=== PATIENT | female | born 1935 | race Caucasian/White ===

== ENCOUNTER 2016-12-26 12:13 | Emergency (ER) | payer OTHER ==
--- NOTE | 2016-12-26 13:11 | EDPHY ---
H & P Stated Complaint: tripped and fell injuring l shoulder/denies loc/neck pain Time Seen by Provider: 12/26/16 12:22 HPI/ROS: CHIEF COMPLAINT: trip and fall, left shoulder pain HISTORY OF PRESENT ILLNESS: 81-year-old female presents to the emergency department after a mechanical trip and fall while walking down the sidewalk with her today. Her reports there was an inch and half lip in the sidewalk that she tripped over. Patient reports she fell forward onto her left shoulder. Patient denies head strike, no neck pain. Patient is right-hand- dominant, she denies numbness or tingling in her hand. Tetanus is up-to-date, she does report burning to her left elbow from an abrasion though denies other elbow pain, no wrist pain. Patient denies chest, abdomen or pelvis pain REVIEW OF SYSTEMS: A comprehensive 10 point review of systems is otherwise negative aside from elements mentioned in the history of present illness. Source: Patient Exam Limitations: No limitations - Personal History Current Tetanus/Diphtheria Vaccine: Yes - Medical/Surgical History Hx Asthma: No Hx Chronic Respiratory Disease: No Hx Diabetes: No Hx Cardiac Disease: No Hx Renal Disease: No Hx Cirrhosis: No Hx Alcoholism: No Hx HIV/AIDS: No Hx Splenectomy or Spleen Trauma: No Other PMH: Graves disease, breast ca, polycytehmia vera, stenosis, multiple eye sugeries bilat hip nd knee replacements/ l femur fx htn - Social History Smoking Status: Never smoked - Physical Exam Exam: Physical Exam Gen: Alert and Oriented, NAD HEENT: PERRL, moist mucous membranes NECK: No C-spine tenderness to palpation CV: regular rate and regular rhythm PULM: CTAB, no wheezes ABDOMEN: soft, non tender to palpation, BS present BACK: No midline tenderness NEURO: Neurologically grossly intact EXTREMITIES: Left shoulder with swelling and obvious deformity, tenderness to palpation, range of motion not tested due to pain, left elbow with no swelling, no tenderness to medial or lateral epicondyle or olecranon. Superficial abrasion over left elbow, 2+ radial pulses, sensation intact to light touch, normal radial motor and sensation, normal sensation to deltoid. SKIN: Superficial abrasion to left elbow PSYCH: answers questions appropriately. Constitutional: Initial Vital Signs Temperature (C) 36.8 C 12/26/16 12:27 Heart Rate 63 12/26/16 12:27 Respiratory Rate 18 12/26/16 12:27 Blood Pressure 185/82 H 12/26/16 12:27 O2 Sat (%) 96 12/26/16 12:27 O2 Delivery Mode Room Air Allergies/Adverse Reactions: Penicillins Allergy (Severe, Verified 12/26/16 12:26) Hives Home Medications: Medication Instructions Recorded Atenolol [Tenormin 25 mg (RX)] 0 mg PO DAILY 11/23/12 Aspirin [Aspirin 81mg (*)] 81 mg PO DAILY 06/20/16 Cholecalciferol Vit D3 [Vitamin D3 2,000 units PO DAILY 06/20/16 2000 units tab (OTC)] Esomeprazole Magnesium [Nexium] 20 mg PO DAILY 06/20/16 Herbals/Supplements -Info Only 1 ea PO DAILY 06/20/16 Hydroxyurea [Hydrea 500 mg (*)] 500 mg PO DAILY 06/20/16 Latanoprost 0.005% [Xalatan 0.005% 1 drops LEFTEYE HS 06/20/16 (*)] Levothyroxine [Synthroid 137 mcg 137 mcg PO MOTUWETHFRSA@06 06/20/16 (*)] Multivitamins [Multivitamin (*)] 1 each PO DAILY 06/20/16 [place]-3 Fatty Acids [Fish Oil 1000 2,000 mg PO BID 06/20/16 mg (*)] Vitamin B Complex [B Complex] 1 tab PO DAILY 06/20/16 ACETAMINOPHEN 650 mg PO Q4-6PRN PRN MDD 3000 mg 06/23/16 Hydrocodone/APAP 5/325 [[place] 1 tab PO Q4H PRN #14 tab 12/26/16 5/325] Medical Decision Making - Diagnostics Imaging Results: Imaging Impressions Shoulder X-Ray 12/26/16 12:43 Impression: Comminuted mildly displaced proximal humerus fracture. Imaging: Discussed imaging studies w/ bingo caller Radiologist, I viewed and interpreted images myself ED Course/Re-evaluation: 81-year-old female left humerus fracture and possible dislocation after a trip and fall. I have contacted with Dr. Atkins who evaluated the patient's x-ray and requested a CT scan. IV established, patient is given 0.5 mg of Dilaudid for pain control. 3pm-patient is back from CT scan, Dr. Atkins has seen and evaluated the patient. Patient does not have a shoulder dislocation. He is requesting a sling and discharged home with pain medication. He will follow up with her in office next week. Patient is given strict return precautions for any neurovascular compromise. - Data Points Medications Given: Discontinued Medications Hydromorphone HCl (Dilaudid) 0.5 mg IVP EDNOW ONE Stop: 12/26/16 13:34 Last Admin: 12/26/16 13:50 Dose: 0.5 mg Departure - Departure Disposition: Home, Routine, Self-Care Clinical Impression: Left humeral fracture Qualifiers: Encounter type: initial encounter Humerus Location: proximal Fracture type: closed Fracture morphology: other fracture Fracture alignment: nondisplaced Qualified Code(s): S42.295A - Other nondisplaced fracture of upper end of left humerus, initial encounter for closed fracture Condition: Good Instructions: Proximal Humerus Fracture (ED) Additional Instructions: Keep your arm in the sling. Ice to your shoulder, take 600 mg of ibuprofen every 8 hours with food for 3-5 days for pain, take 1/2 to 1 hydrocodone every 4 -6 hours as needed for severe pain. This medication has Tylenol in it. Do not take more than 3000 mg of Tylenol in 24 hours. Return to the emergency department immediately for any numbness or tingling in your arm, pain that is not controlled, any new symptoms or concerns. Follow-up with Dr. Atkins in his office next week. Call Tuesday to schedule this appointment. Referrals: Mau Atkins MD [Medical Doctor] - As per Instructions Prescriptions: Hydrocodone/APAP 5/325 [[place] 5/325] 1 tab PO Q4H PRN #14 tab PRN Reason: Pain, Moderate
[2016-12-26] MEDS ORDERED: HYDROmorphONE/DILAUDID 1 MG/ML SYR IVP ONE (13:33)
[2016-12-26] MEDS ORDERED: ONDANSETRON 4 MG/2 ML VIAL ONE (13:36)
[2016-12-26] MEDS ORDERED: HYDROCODONE/APAP 5/325 TAB PO ONE (15:33)
[2016-12-26] MEDS ORDERED: IBUPROFEN 600 MG TAB PO ONE (15:49)
--- NOTE | 2016-12-26 16:02 | GCON ---
[f rep st] CONSULTATION ER CONSULT NOTE DATE OF CONSULTATION: 12/26/2016 CHIEF COMPLAINT: Left proximal humerus fracture. HISTORY OF PRESENT ILLNESS: A 81-year-old female presents after falling down and tripping on a side walk and landing on her left shoulder. She denies other injury or any other pain. She had immediat e pain in the left shoulder and difficulty moving it. She was able to walk. She also states she jane s an abrasion on her elbow. REVIEW OF SYSTEMS: Comprehensive 10-point review of systems performed is otherwise negative. PAST MEDICAL HISTORY: Graves disease, breast cancer, stenosis. PAST SURGICAL HISTORY: Eye surgeries, bilateral hip and knee replacements, femur fracture. SOCIAL HISTORY: She is a nonsmoker. FAMILY HISTORY: Noncontributory. ALLERGIES: Penicillins. MEDICATIONS: Please see med list in [facility]. PHYSICAL EXAM: GENERAL: She is alert, oriented, appropriate, in no acute distress. HEENT: Her he ad is atraumatic and normocephalic. Eyes are equal and reactive. NECK: Supple. CVS: Regular rat e and rhythm. PULMONARY: She has good inspiratory effort and symmetric chest rise. ABDOMEN: Soft . BACK: No midline tenderness. EXTREMITIES: Left shoulder she hold at her side and internally ro tated. She has some swelling of the left shoulder and is tender. She has intact sensation of the a xillary nerve. She can flex and extend her elbow with good strength. She can move her hand with 4/ 5 strength in finger abduction, flexion, extension, and thumb flexion, abduction. Neurovascularly i ntact in her other nerves. Right upper extremity is without abnormality, showing good range of ella on, full strength. Her lower extremities show good range of motion, full strength. No other concer kathleen signs. RADIOLOGY: Plain films showed a proximal humerus fracture. CT showing that the humeral head is loc ated within the glenoid. She has a surgical neck fracture as well as a greater tuberosity fracture. However, these are both only minimally to mildly displaced. Greater tuberosity does appear to be within 5 mm. The shaft and head show good alignment. ASSESSMENT: Three-part proximal humerus fracture. PLAN: I discussed the nature of her condition and treatment options. I told her that we could atte mpt to treat this nonoperatively. She is in a good position at the moment. We will get her a sling , and she will be nonweightbearing with this, and we will have her keep the shoulder at her side. O btain x-rays in a few days. I gave her my card to schedule a clinic appointment for . We w ill further evaluate the tuberosity. If her tuberosity begins displacing, we would schedule surgery to repair the tuberosity. If this remains stable, I think she can be treated nonoperatively in a [facility]. She will be sent home from the emergency room. /[id number]/MODL
[2016-12-26 16:12] VITALS: BP 144/76; PULSE 76; RESP 16; TEMP 97.7; O2SAT 98
== END 2016-12-26 16:12 | disposition home or self-care (01) ==
DX: S42.295A Other nondisplaced fracture of upper end of left humerus, initial encounter for closed fracture (principal); Z79.82 Long term (current) use of aspirin; Z85.3 Personal history of malignant neoplasm of breast; W10.1XXA Fall (on)(from) sidewalk curb, initial encounter; Y92.480 Sidewalk as the place of occurrence of the external cause; Y99.8 Other external cause status; Y93.01 Activity, walking, marching and hiking
CPT/HCPCS: 73030; 73200; 96374; 99285; A4565; J1170; J2405

== ENCOUNTER → 2017-02-22 | Outpatient (CLI) | payer OTHER | LOC: BMCIMAGING 13:31 | PROVIDERS: ATTEND Internal Medicine Hematology & Oncology | DX: Z12.31 Encounter for screening mammogram for malignant neoplasm of breast (principal); Z85.3 Personal history of malignant neoplasm of breast; Z90.12 Acquired absence of left breast and nipple | CPT/HCPCS: G0202-52 ==

== ENCOUNTER → 2017-04-20 | Outpatient (CLI) | payer OTHER | LOC: BMCIMAGING 09:41 | PROVIDERS: ATTEND Physician Assistant | DX: Z13.820 Encounter for screening for osteoporosis (principal); M81.0 Age-related osteoporosis without current pathological fracture ==

== ENCOUNTER 2017-08-20 09:15 | Emergency (ER) | payer OTHER ==
[2017-08-20 09:20] VITALS: PULSE 78; TEMP 98.2
[2017-08-20] MEDS ORDERED: IBUPROFEN 600 MG TAB PO ONE (10:39)
--- NOTE | 2017-08-20 10:45 | EDPHY ---
H & P Stated Complaint: Tripped on walker;fell,inj L wrist;also wants check for poss UTI Time Seen by Provider: 08/20/17 09:25 HPI/ROS: Chief complaint: Left wrist injury History of present illness: This is an 82-year-old female who presents to the emergency department for left wrist injury. Patient was going to the bathroom with her walker when she lost her balance and fell onto her left wrist. Since then she has had pain in the wrist. Uncomfortable to move it. No report of open wounds. No report of paresthesias or abnormal coolness in the hand or arm. No other injuries reported. No preceding events such as dizziness or lightheadedness. There was no loss of consciousness. Patient does report she has been going to the bathroom more often than usual, she describes urinary urgency. However this is been ongoing problem is being followed by her primary care doctor for this. No report of fevers or new symptoms. Review of systems: A 10 point review of systems was obtained and other than described above was negative - Personal History Current Tetanus Diphtheria and Acellular Pertussis (TDAP): Yes - Medical/Surgical History Hx Asthma: No Hx Chronic Respiratory Disease: No Hx Diabetes: No Hx Cardiac Disease: No Hx Renal Disease: No Hx Cirrhosis: No Hx Alcoholism: No Hx HIV/AIDS: No Hx Splenectomy or Spleen Trauma: No Other PMH: Graves disease, breast ca, polycytehmia vera, stenosis, multiple eye sugeries bilat hip nd knee replacements/ l femur fx htn. R leg femur fx - Social History Smoking Status: Never smoked - Physical Exam Exam: General: Alert, nontoxic Respiratory: Lungs clear to auscultation bilaterally Cardiac: Regular rate and rhythm Abdomen: Soft, nondistended, nontender Genitourinary: No CVA tenderness Musculoskeletal: Tenderness to the left wrist. However she is still moving it. The rest the arm and left hand are nontender. She is moving the digits of the left hand well. Vascular: Radial pulses 2+. Capillary refill brisk in the left hand. Neurologic: Sensation intact throughout the left upper extremity. Constitutional: Initial Vital Signs Temperature (C) 36.8 C 08/20/17 09:17 Heart Rate 78 08/20/17 09:17 Respiratory Rate 18 08/20/17 09:17 Blood Pressure 152/85 H 08/20/17 09:17 O2 Sat (%) 94 08/20/17 09:17 O2 Delivery Mode Room Air Allergies/Adverse Reactions: Penicillins Allergy (Intermediate, Verified 08/20/17 09:16) Hives Home Medications: Medication Instructions Recorded Atenolol [Tenormin 25 mg (RX)] 0 mg PO DAILY 11/23/12 Aspirin [Aspirin 81mg (*)] 81 mg PO DAILY 06/20/16 Cholecalciferol Vit D3 [Vitamin D3 2,000 units PO DAILY 06/20/16 2000 units tab (OTC)] Esomeprazole Magnesium [Nexium] 20 mg PO DAILY 06/20/16 Herbals/Supplements -Info Only 1 ea PO DAILY 06/20/16 Hydroxyurea [Hydrea 500 mg (*)] 500 mg PO DAILY 06/20/16 Latanoprost 0.005% [Xalatan 0.005% 1 drops LEFTEYE HS 06/20/16 (*)] Levothyroxine [Synthroid 137 mcg 137 mcg PO MOTUWETHFRSA@06 06/20/16 (*)] Multivitamins [Multivitamin (*)] 1 each PO DAILY 06/20/16 [place]-3 Fatty Acids [Fish Oil 1000 2,000 mg PO BID 06/20/16 mg (*)] Vitamin B Complex [B Complex] 1 tab PO DAILY 06/20/16 ACETAMINOPHEN 650 mg PO Q4-6PRN PRN MDD 3000 mg 06/23/16 Hydrocodone/APAP 5/325 [[place] 1 tab PO Q4H PRN #14 tab 12/26/16 5/325] Medical Decision Making - Diagnostics Imaging Results: Imaging Impressions Wrist X-Ray 08/20/17 09:23 Impression: 1. Essentially undisplaced intra-articular distal left radial fracture. 2. Degenerative changes are seen. Results called and discussed with ZAIRE Stevenson on 08/20/2017 at 10:03 Imaging: I viewed and interpreted images myself Procedures: Procedure: Splint placement. A sugar-tong splint was applied. After application of the splint I returned and re-examined the patient. The splint was adequately immobilizing the joint and distal to the splint the patient's circulation and sensation was intact. ED Course/Re-evaluation: Patient is seen under the supervision of my secondary supervising physician Dr. Navi Crawford. Patient presents to the emergency department for left wrist injury. X-ray confirms a fracture. The left upper extremity is neurovascularly intact. She is splinted. She is referred to Orthopedics. She also has ongoing urinary issues after being followed by her primary care doctor. Urinalysis is not convincing for infection. Urine culture is ordered. She is also referred to Urology. Home care is discussed. Return precautions are given. Patient voiced understanding and agreement with plan. Differential Diagnosis: Included but not limited to contusion, sprain or strain, bony fracture as well as urinary tract infection, bladder spasms, nephrolithiasis - Data Points Laboratory Results: 08/20/17 10:08 Urine Color YELLOW Urine Appearance MODERATELY TURBID Urine pH 6.0 (5.0-7.5) Ur Specific [place] 1.024 (1.002-1.030) Urine Protein 1+ H (NEGATIVE) Urine Ketones NEGATIVE (NEGATIVE) Urine Blood NEGATIVE (NEGATIVE) Urine Nitrate NEGATIVE (NEGATIVE) Urine Bilirubin NEGATIVE (NEGATIVE) Urine Urobilinogen NEGATIVE EU EU (0.2-1.0) Ur Leukocyte Esterase 1+ H (NEGATIVE) Urine RBC 1-3 /hpf /hpf (0-3) Urine WBC 1-3 /hpf /hpf (0-3) Ur Epithelial Cells 2+ /lpf H /lpf (NONE-1+) Urine Mucus TRACE /lpf /lpf (NONE-1+) Urine Glucose NEGATIVE (NEGATIVE) Medications Given: Discontinued Medications Ibuprofen (Motrin) 600 mg PO EDNOW ONE Stop: 08/20/17 10:40 Last Admin: 08/20/17 10:51 Dose: 600 mg Departure - Departure Disposition: Home, Routine, Self-Care Clinical Impression: Urinary urgency Wrist fracture, left Qualifiers: Encounter type: initial encounter Fracture type: closed Qualified Code(s): S62.102A - Fracture of unspecified carpal bone, left wrist, initial encounter for closed fracture Condition: Good Instructions: Wrist Fracture in Adults (ED), Urinary Incontinence (ED) Additional Instructions: Follow-up with orthopedics and Urology next week for recheck Let your primary care doctor know that a urine culture is pending If symptoms worsen or new symptoms develop return to the emergency room for recheck Referrals: John Mayen PA [Primary Care Provider] - As per Instructions Mau Atkins MD [Medical Doctor] - As per Instructions Zach Saucedo MD [Medical Doctor] - As per Instructions
[2017-08-20 11:21] VITALS: BP 158/97; RESP 16; O2SAT 92
== END 2017-08-20 11:05 | disposition home or self-care (01) ==
DX: S52.502A Unspecified fracture of the lower end of left radius, initial encounter for closed fracture (principal); R39.15 Urgency of urination; I10 Essential (primary) hypertension; Z79.82 Long term (current) use of aspirin; Z85.3 Personal history of malignant neoplasm of breast; W01.0XXA Fall on same level from slipping, tripping and stumbling without subsequent striking against object, initial encounter; Y99.8 Other external cause status

== ENCOUNTER → 2018-02-23 | Outpatient (CLI) | payer OTHER | LOC: BMCIMAGING 09:06 | PROVIDERS: ATTEND Internal Medicine Hematology & Oncology | DX: Z12.31 Encounter for screening mammogram for malignant neoplasm of breast (principal); Z90.12 Acquired absence of left breast and nipple ==

== ENCOUNTER → 2018-03-23 | Outpatient (CLI) | payer OTHER | LOC: FIMAGING 09:13 | DX: M54.6 Pain in thoracic spine (principal); M40.204 Unspecified kyphosis, thoracic region; M43.8X5 Other specified deforming dorsopathies, thoracolumbar region ==

== ENCOUNTER 2018-05-22 18:15 | Emergency (ER) | payer OTHER ==
[2018-05-22] MEDS ORDERED: ASPIRIN 81 MG CHEWABLE TAB PO ONE (18:42)
[2018-05-22] MEDS ORDERED: DILTIAZEM 25 MG/5 ML VIAL IVP ONE (18:42)
[2018-05-22] MEDS ORDERED: DILTIAZEM 125 MG in D5W 125 ML IV ONE (18:42)
[2018-05-22] MEDS ORDERED: NS 500 ML IV ONE (18:42)
--- NOTE | 2018-05-22 18:47 | EDPHY ---
H & P Time Seen by Provider: 05/22/18 18:33 HPI/ROS: CHIEF COMPLAINT: Palpitations, rapid heart rate HISTORY OF PRESENT ILLNESS: The patient is a 82 year with a history of hypothyroidism who presents emergency department with rapid heart rate and palpitations. Patient has been following up with her primary care physician due to increased anxiety and that tends sensation. Her PCP thought that it might be secondary to her thyroid disease. Her thyroid dose was recently changed. She went for a checkup today. Upon leaving the office she developed palpitations in her neck. She denies chest pain or shortness of breath. She went to the grocery store and then went home. She noted on her home monitor that she was at a rate of 180. She subsequently stopped by her primary care physician is office. There she was noted to have a rapid heart rate and was sent to the emergency department REVIEW OF SYSTEMS: 10 systems were reveiwed and are negative with the exception of the elements mentioned in the history of present illness. Past Medical/Surgical History: Includes hypothyroidism, Graves disease, polycythemia vera Past surgical history: Includes multiple eye surgeries, hip and knee replacement, femur fracture with repair Social history: Patient is Smoking Status: Never smoked Physical Exam: Vitals noted. Heart rate 165 in triage. In the room it was in the 130s. GENERAL: Well-appearing, in no acute distress, alert. HEENT: Eyes normal to inspection, normal pharynx, no signs of dehydration. NECK: Normal, supple. RESPIRATORY: Clear to auscultation bilaterally, no rales, rhonchi or wheezing. CVS: Irregularly irregular tachycardia, no rubs, murmurs, or gallops. ABDOMEN: Soft, nontender, nondistended, no organomegaly. BACK: Normal to inspection, no CVA tenderness. SKIN: Normal color, no rash, warm, dry. No pallor. EXTREMITIES: No pedal edema, no calf tenderness, no Homans sign or cords, no joint swelling. NEURO/PSYCH: Alert and oriented, normal mood and affect, normal motor sensory exam. No obvious cranial nerve deficit. Constitutional: Initial Vital Signs Temperature (C) 36.8 C 05/22/18 18:21 Heart Rate 165 H 05/22/18 18:21 Respiratory Rate 18 05/22/18 18:21 Blood Pressure 91/70 L 05/22/18 18:21 O2 Sat (%) 92 10/22/18 18:21 O2 Delivery Mode Room Air Allergies/Adverse Reactions: Penicillins Allergy (Intermediate, Verified 05/22/18 18:20) Hives Home Medications: Medication Instructions Recorded Atenolol [Tenormin 25 mg (RX)] 25 mg PO DAILY 11/23/12 Aspirin [Aspirin 81mg (*)] 81 mg PO DAILY 06/20/16 Cholecalciferol Vit D3 [Vitamin D3 2,000 units PO DAILY 06/20/16 2000 units tab (OTC)] Esomeprazole Magnesium [Nexium] 40 mg PO DAILY 06/20/16 Herbals/Supplements -Info Only 1 ea PO DAILY 06/20/16 Hydroxyurea [Hydrea 500 mg (*)] 500 mg PO DAILY 06/20/16 Latanoprost 0.005% [Xalatan 0.005% 1 drops EACHEYE HS 06/20/16 (*)] Levothyroxine [Synthroid 137 mcg 137 mcg PO DAILY@0600 06/20/16 (*)] Multivitamins [Multivitamin (*)] 1 each PO DAILY 06/20/16 [place]-3 Fatty Acids [Fish Oil 1000 2,000 mg PO BID 06/20/16 mg (*)] Vitamin B Complex [B Complex] 1 tab PO DAILY 06/20/16 Acetaminophen/Diphenhydramine 1 each PO HS PRN 05/22/18 [Tylenol Pm Ex-Strength Caplet] Diazepam [Valium 2 MG (*)] 2 mg PO DAILY PRN 05/22/18 Estradiol [Estrace Vaginal (*)] 1 augustine VAG HS 05/22/18 LORazepam [Ativan (*)] 0.5 mg PO HS PRN 05/22/18 Psyllium Husk (with Sugar) 1 each PO DAILY 05/22/18 [Metamucil Packet] Medical Decision Making - Diagnostics Imaging Results: Imaging Impressions Chest X-Ray 05/22/18 18:42 Impression: 1. Mild cardiomegaly stable in appearance. 2. Subsegmental atelectasis suspected at the lung bases right side more than left. Consider curly B lines at the left base. Rule out mild interstitial edema/ fluid overload. ED Course/Re-evaluation: In the emergency department I met the patient on arrival. She was noted to be tachycardic. Initial EKG was performed. EKG: The patient had atrial fibrillation at a rate of 136. There is ST depression in II, III V4-V6 I reviewed the patient's old EKG from September 2008. At that time she was in sinus rhythm. Patient's white count is elevated 15,000. Hematocrit is normal. Chemistry panel is pending. Troponin is negative. Patient's chemistry panel is unremarkable. TSH is pending 192: I discussed case with Dr. Burt. He will admit. Patient is aware the plan. On subsequent recheck the patient converted to sinus rhythm. Dr. Burt was in the emergency department. After his evaluation he felt he could manage this patient as an outpatient. The patient felt comfortable this plan. Prior to leaving the patient was doing well. She had no complaints. I discussed the case with Dr. Burt. He will arrange for anticoagulation and treatment. Differential Diagnosis: My differential includes but is not limited to atrial fibrillation with rapid ventricular response, hypothyroidism, hypothyroidism, electrolyte abnormality, sugar abnormality, ACS, acute PA Critical Care Time: Patient required 35 min of critical care time. This was exclusive of any unbundled procedure. This was due the patient's atrial fibrillation, rapid heart rate, need for diltiazem bolus and drip, time spent at the bedside, and consultation with Dr. Burt - Data Points Laboratory Results: Laboratory Results 05/22/18 18:37 05/22/18 18:37 05/22/18 05/22/18 05/22/18 18:39 18:37 18:37 WBC 15.81 10^3/uL H 10^3/uL (3.80-9.50) RBC 5.56 10^6/uL H 10^6/uL (4.18-5.33) Hgb 13.3 g/dL g/dL (12.6-16.3) Hct 43.5 % % (38.0-47.0) MCV 78.2 fL L fL (81.5-99.8) MCH 23.9 pg L pg (27.9-34.1) MCHC 30.6 g/dL L g/dL (32.4-36.7) RDW 18.9 % H % (11.5-15.2) Plt Count 463 10^3/uL H 10^3/uL (150-400) MPV 11.6 fL fL (8.7-11.7) Neut % (Auto) 80.0 % H % (39.3-74.2) Lymph % (Auto) 14.2 % L % (15.0-45.0) [place] % (Auto) 5.1 % % (4.5-13.0) Eos % (Auto) 0.0 % L % (0.6-7.6) Baso % (Auto) 0.1 % L % (0.3-1.7) Nucleat RBC Rel Count 0.0 % % (0.0-0.2) Absolute Neuts (auto) 12.65 10^3/uL H 10^3/uL (1.70-6.50) Absolute Lymphs (auto) 2.25 10^3/uL 10^3/uL (1.00-3.00) Absolute Monos (auto) 0.80 10^3/uL 10^3/uL (0.30-0.80) Absolute Eos (auto) 0.00 10^3/uL L 10^3/uL (0.03-0.40) Absolute Basos (auto) 0.02 10^3/uL 10^3/uL (0.02-0.10) Absolute Nucleated RBC 0.00 10^3/uL 10^3/uL (0-0.01) Immature Gran % 0.6 % % (0.0-1.1) Immature Gran # 0.09 10^3/uL 10^3/uL (0.00-0.10) Sodium 133 mEq/L L mEq/L (135-145) Potassium 4.7 mEq/L mEq/L (3.3-5.0) Chloride 99 mEq/L mEq/L (97-110) Carbon Dioxide 21 mEq/l L mEq/l (22-31) Anion Gap 13 mEq/L mEq/L (6-14) BUN 22 mg/dL mg/dL (7-23) Creatinine 1.0 mg/dL mg/dL (0.6-1.0) Estimated GFR 53 Glucose 105 mg/dL H mg/dL (70-100) Calcium 10.1 mg/dL mg/dL (8.5-10.4) POC Troponin I 0.01 ng/mL ng/mL (0.00-0.08) NT-Pro-B Natriuret Pep 555 pg/mL H pg/mL (0-450) TSH 2.160 uIU/mL uIU/mL (0.465-4.680) Medications Given: Discontinued Medications Aspirin (Aspirin) 324 mg PO EDNOW ONE Stop: 05/22/18 18:43 Last Admin: 05/22/18 18:51 Dose: 324 mg Diltiazem HCl (Cardizem 25 Mg/5 Ml Vial) 10 mg IVP EDNOW ONE Stop: 05/22/18 18:43 Last Admin: 05/22/18 19:01 Dose: 10 mg Diltiazem HCl 125 mg/ Dextrose 125 mls @ 0 mls/hr IV EDNOW ONE; As Directed PRN Reason: Protocol Stop: 05/22/18 18:43 Last Admin: 05/22/18 19:01 Dose: 125 mls Sodium Chloride (Ns) 500 mls @ 1,000 mls/hr IV EDNOW ONE PRN Reason: Protocol Stop: 05/22/18 19:11 Last Admin: 05/22/18 19:09 Dose: 500 mls Point of Care Test Results: Chemistry 05/22/18 18:39 POC Troponin I 0.01 ng/mL ng/mL (0.00-0.08) Departure - Departure Disposition: [facility] Inpatient Acute Clinical Impression: Atrial fibrillation Qualifiers: Atrial fibrillation type: unspecified Qualified Code(s): I48.91 - Unspecified atrial fibrillation Leukocytosis Qualifiers: Leukocytosis type: unspecified Qualified Code(s): D72.829 - Elevated white blood cell count, unspecified Condition: Good
[2018-05-22] MEDS ORDERED: ASPIRIN 81 MG CHEWABLE TAB ONE (18:49)
[2018-05-22 18:56] LABS: PLATELET COUNT 463 10^3/uL (150-400)
[2018-05-22] MEDS ORDERED: APIXABAN 5 MG TAB PO ONE (21:00)
[2018-05-22] MEDS ORDERED: DILTIAZEM CD 180 MG CAP PO ONE (21:30)
--- NOTE | 2018-05-22 21:57 | CPEKG ---
Test Reason : OPEN Blood Pressure : / mmHG Vent. Rate : 136 BPM Atrial Rate : 135 BPM P-R Int : 152 ms QRS Dur : 084 ms QT Int : 339 ms P-R-T Axes : 000 -42 059 degrees QTc Int : 510 ms Atrial fibrillation Left axis deviation ST depression, probably rate related Prolonged QT interval Confirmed by Clover Quinn [id number] on 05/22/2018 9:56:59 PM Referred By: Confirmed By:Clover Quinn
[2018-05-22 22:01] VITALS: BP 127/61
--- NOTE | 2018-05-23 23:54 | GHP ---
DATE OF ADMISSION: 05/22/2018 REASON FOR EVALUATION: Atrial fibrillation with rapid ventricular response. HISTORY: The patient is an 82-year-old female who, after seeing RADAMES Oviedo, in the office to day was in the car and developed a very rapid heart rate and felt lightheaded. She was sent to the e mergency room where she was found to be in atrial fibrillation with a rapid ventricular response. Sh e was placed on dobutamine, and the atrial fibrillation rate improved and subsequently spontaneously converted to sinus rhythm. Of interest, she had a similar episode of very fast heart rhythm the week before, but it spontaneously converted prior to getting in to see Dr. Magaña. She was feeling fine t he time that I saw her. She was in a normal sinus rhythm. Pulse rate was 58 to 60. Blood pressure was controlled. She is on diltiazem at 15 mg per hour drip. IMPRESSION: Paroxysmal atrial fibrillation with rapid ventricular response. PLAN: I will send her home on diltiazem 180 mg b.i.d. We will also place her on Eliquis 5 mg b.i.d. She will follow up with RADAMES Oviedo, in 2 days to re-evaluate the situation. /[id number]/MODL
== END 2018-05-22 22:01 | disposition home or self-care (01) ==
LOC: UNDOADMOB 19:23
DX: I48.91 Unspecified atrial fibrillation (principal); D72.829 Elevated white blood cell count, unspecified
CPT/HCPCS: 84484-PO; 96374

== ENCOUNTER → 2018-06-16 | Outpatient (CLI) | payer OTHER | LOC: BHFA 13:15 | PROVIDERS: ATTEND Internal Medicine Cardiovascular Disease | DX: I48.91 Unspecified atrial fibrillation (principal) ==

== ENCOUNTER 2018-08-09 17:56 | Emergency (ER) | payer OTHER ==
--- NOTE | 2018-08-09 18:01 | EDPHY ---
H & P Time Seen by Provider: 08/09/18 18:01 HPI/ROS: CHIEF COMPLAINT: Epistaxis HISTORY OF PRESENT ILLNESS: 83-year-old female history of atrial fibrillation, chronic Eliquis anticoagulation, was blowing her nose approximately 1.5 hr ago, developed right-sided epistaxis which continues. No dizziness. No headache. No chest pain. No dyspnea. No nausea or vomiting. PRIMARY CARE PROVIDER: Javed REVIEW OF SYSTEMS: 10 systems reviewed and negative with the exception of the elements mentioned in the history of present illness PAST MEDICAL & SURGICAL HISTORY: atrial fibrillation with chronic Eliquis anticoagulation SOCIAL HISTORY: nonsmoker PHYSICAL EXAM (Prior to examination, patient consented to physical exam, hands were washed and my usual and customary physical exam procedures followed) 1) GENERAL: Well-developed, well-nourished, alert and oriented. Appears to be in no acute distress. 2) HEAD: Normocephalic, atraumatic 3) HEENT: Pupils equal, round, reactive to light bilaterally. Sclera anicteric. Nasopharynx: Right-sided epistaxis noted. 4) NECK: Full range of motion, no meningeal signs. 5) LUNGS: Clear auscultation bilaterally, no wheezes, no rhonchi, no retractions. 6) HEART: Regular rate and rhythm, no murmur, no heave, no gallop. 7) ABDOMEN: No guarding, no rebound, no focal tenderness, 8) MUSCULOSKELETAL: Moving all extremities, no focal areas of tenderness, no obvious trauma. No peripheral edema or discoloration. 9) BACK: No visual or palpable abnormality. 10) SKIN: No rash, no petechiae. 11) Psychiatric: Patient is oriented X 3, there is no agitation. DIFFERENTIAL DIAGNOSIS: In no particular order including but not limited to anterior epistaxis, posterior epistaxis, chronic anticoagulation Smoking Status: Never smoked Constitutional: Initial Vital Signs Temperature (C) 36.7 C 08/09/18 17:57 Heart Rate 124 H 08/09/18 17:57 Respiratory Rate 18 08/09/18 17:57 Blood Pressure 161/99 H 08/09/18 17:57 O2 Sat (%) 94 08/09/18 17:57 O2 Delivery Mode Room Air Allergies/Adverse Reactions: Penicillins Allergy (Intermediate, Verified 08/09/18 17:57) Hives Home Medications: Medication Instructions Recorded Atenolol [Tenormin 25 mg (RX)] 25 mg PO DAILY 11/23/12 Aspirin [Aspirin 81mg (*)] 81 mg PO DAILY 06/20/16 Cholecalciferol Vit D3 [Vitamin D3 2,000 units PO DAILY 06/20/16 2000 units tab (OTC)] Esomeprazole Magnesium [Nexium] 40 mg PO DAILY 06/20/16 Herbals/Supplements -Info Only 1 ea PO DAILY 06/20/16 Hydroxyurea [Hydrea 500 mg (*)] 500 mg PO DAILY 06/20/16 Latanoprost 0.005% [Xalatan 0.005% 1 drops EACHEYE HS 06/20/16 (*)] Levothyroxine [Synthroid 137 mcg 137 mcg PO DAILY@0600 06/20/16 (*)] Multivitamins [Multivitamin (*)] 1 each PO DAILY 06/20/16 Aurora-3 Fatty Acids [Fish Oil 1000 2,000 mg PO BID 06/20/16 mg (*)] Vitamin B Complex [B Complex] 1 tab PO DAILY 06/20/16 Acetaminophen/Diphenhydramine 1 each PO HS PRN 05/22/18 [Tylenol Pm Ex-Strength Caplet] Diazepam [Valium 2 MG (*)] 2 mg PO DAILY PRN 05/22/18 Estradiol [Estrace Vaginal (*)] 1 augustine VAG HS 05/22/18 LORazepam [Ativan (*)] 0.5 mg PO HS PRN 05/22/18 Psyllium Husk (with Sugar) 1 each PO DAILY 05/22/18 [Metamucil Packet] Eliquis 08/09/18 MDM/Departure - [facility] Procedures: Procedure: Epistaxis control. Indication: nosebleed not controlled by direct pressure. Risks, benefits, alternatives discussed with patient and consent obtained. Initial attempts at hemostasis with tranexamic acid pledget resulted in continued breakthrough bleeding. Silver nitrate cautery the then placed by myself with resultant breakthrough bleeding. Subsequently, rapid rhino packing placed by myself with resultant hemostasis. Patient ambulated around the emergency department with no resultant bleeding. The patient tolerated the procedure well. The procedure was performed by myself. At discharge the patient's nose is hemostatic. Medications Given: Discontinued Medications Benzocaine (Hurricaine Morehead) 1 each MM EDNOW ONE Stop: 08/09/18 19:32 Last Admin: 08/09/18 19:32 Dose: 1 each Silver Nitrate/Potassium Nitrate (Silver Nitrate Applicator) 3 each TP EDNOW ONE Stop: 08/09/18 18:49 Last Admin: 08/09/18 18:51 Dose: 3 each Tranexamic Acid (Cyklokapron) 500 mg TP EDNOW ONE Stop: 08/09/18 18:06 Last Admin: 08/09/18 18:17 Dose: 500 mg ED Course/Re-evaluation: 6:12 p.m.: TXA soaked pledget applied by myself. Will observe and re-evaluate patient. See procedure note. Briefly, however, TXA pledget resulted in breakthrough bleeding as did silver nitrate cautery. Rapid rhino placed with resultant hemostasis. Patient ambulated around ER with no further bleeding. Today is Tuesday. Followup with ENT on Tuesday for removal. Usual and customary epistaxis precautions and instructions provided. CAre under secondary supervising physician DR Marsh. - Depart Disposition: Home, Routine, Self-Care Clinical Impression: Right-sided nosebleed Condition: Good Instructions: Nosebleed (ED) Additional Instructions: If you develop further episodes of nosebleed, place direct pressure for 20 minutes. If the bleeding continues, seek medical attention. Do not blow your nose, do not pick your nose, avoid bearing down. Referrals: Matt Dickens MD [Medical Doctor] - 08/11/18
[2018-08-09] MEDS ORDERED: TRANEXAMIC ACID 1,000 MG/10 ML VIAL TP ONE (18:05)
[2018-08-09] MEDS ORDERED: SILVER NITRATE APPLICATOR 1 APPL TP ONE (18:48)
[2018-08-09] MEDS ORDERED: BENZOCAINE UNIT DOSE SPRAY HURRICAINE MM ONE ×2 (19:29→19:31)
[2018-08-09 19:52] VITALS: BP 113/75
== END 2018-08-09 19:52 | disposition home or self-care (01) ==
PROC: 2Y41X5Z Packing of Nasal Region using Packing Material (ICD-10-PCS; principal; 2018-08-09)
DX: R04.0 Epistaxis (principal); I48.91 Unspecified atrial fibrillation; Z79.01 Long term (current) use of anticoagulants